=== PATIENT | male | born 1985 | race Caucasian/White ===

== ENCOUNTER 2017-10-25 17:38 | Emergency (ER) | payer OTHER ==
[2017-10-25 17:50] VITALS: BP 119/77
--- NOTE | 2017-10-25 19:20 | ER Document Report ---
ED General - General Chief Complaint: Allergic Reaction Stated Complaint: RASH/FEVER Time Seen by Provider: 10/25/17 19:05 TRAVEL OUTSIDE OF THE [place] IN LAST 30 DAYS: No - HPI Patient complains to provider of: Allergic reaction Notes: Patient coming in for evaluation of allergic reaction. Patient states he has been on Bactrim for the last 11 days due to prostatitis. Patient states history of prostatitis before with dysuria. Patient states no dysuria at this time however has a diffuse rash that arose in the last 12 hours. Patient denies any itching. Patient denies any mouth pain or oral lesions. Patient otherwise resting comfortably upon my evaluation. - Related Data Allergies/Adverse Reactions: No Known Allergies Allergy (Verified 10/25/17 19:08) Past Medical History - Social History Smoking Status: Never Smoker Chew tobacco use (# tins/day): No Frequency of alcohol use: Occasional Drug Abuse: None Family History: Reviewed & Not Pertinent Patient has suicidal ideation: No Patient has homicidal ideation: No Pulmonary Medical History: Reports: Hx Asthma Renal/ Medical History: Denies: Hx Peritoneal Dialysis Review of Systems - Review of Systems Constitutional: No symptoms reported EENT: No symptoms reported Cardiovascular: No symptoms reported Respiratory: No symptoms reported Gastrointestinal: No symptoms reported Genitourinary: No symptoms reported Male Genitourinary: No symptoms reported Musculoskeletal: No symptoms reported Skin: Rash Hematologic/Lymphatic: No symptoms reported Neurological/Psychological: No symptoms reported -: Yes All other systems reviewed and negative Physical Exam - Vital signs Vitals: Temp Pulse Resp BP Pulse Ox 98.1 F 90 18 119/77 96 10/25/17 17:48 10/25/17 17:48 10/25/17 17:48 10/25/17 17:48 10/25/17 17:48 Interpretation: Normal - General General appearance: Appears well, Alert - HEENT Head: Normocephalic, Atraumatic Eyes: Normal Pupils: PERRL - Respiratory Respiratory status: No respiratory distress Chest status: Nontender Breath sounds: Normal Chest palpation: Normal - Cardiovascular Rhythm: Regular Heart sounds: Normal auscultation Murmur: No - Abdominal Inspection: Normal Distension: No distension Bowel sounds: Normal Tenderness: Nontender Organomegaly: No organomegaly - Back Back: Normal, Nontender - Extremities General upper extremity: Normal inspection, Nontender, Normal color, Normal ROM , Normal temperature General lower extremity: Normal inspection, Nontender, Normal color, Normal ROM , Normal temperature, Normal weight bearing. No: William's sign - Neurological Neuro grossly intact: Yes Cognition: Normal Orientation: AAOx4 Jose Carlos Coma Scale Eye Opening: Spontaneous Jose Carlos Coma Scale Verbal: Oriented [place] Coma Scale Motor: Obeys Commands Jose Carlos Coma Scale Total: 15 Speech: Normal Motor strength normal: LUE, RUE, LLE, RLE Sensory: Normal - Psychological Associated symptoms: Normal affect, Normal mood - Skin Skin Temperature: Warm Skin Moisture: Dry Skin Color: Other - Blanchable erythematous macules are not pruritic Course - Re-evaluation Re-evalutation: 10/25/17 20:44 More likely patient developed a drug rash. Patient recommended to start on Benadryl to stop the Bactrim at this time to follow-up with his urologist. Agrees with plan otherwise physical examination normal - Vital Signs Vital signs: Temp Pulse Resp BP Pulse Ox 98.1 F 90 18 119/77 96 10/25/17 17:48 10/25/17 17:48 10/25/17 17:48 10/25/17 17:48 10/25/17 17:48 Discharge - Discharge Clinical Impression: Allergic reaction caused by a drug Qualifiers: Encounter type: initial encounter Qualified Code(s): T78.40XA - Allergy, unspecified, initial encounter Condition: Good Disposition: HOME, SELF-CARE Instructions: Acute Allergic Reaction to Drugs ([facility]), Use of Diphenhydramine Additional Instructions: Evaluation is consistent with allergic reaction more likely from your antibiotic at this time. Follow-up with your primary care physician/urologist I would recommend recommend taking Benadryl 25-50 mg every 6 hours. Return to ER symptoms worsen Forms: Return to Work
== END 2017-10-25 19:17 | disposition home or self-care (01) ==
LOC: ER 17:38
DX: T78.40XA Allergy, unspecified, initial encounter (principal); R21 Rash and other nonspecific skin eruption; X58.XXXA Exposure to other specified factors, initial encounter; N41.9 Inflammatory disease of prostate, unspecified; J45.909 Unspecified asthma, uncomplicated
CPT/HCPCS: 99283